=== PATIENT | female | born 1965 | race African-American/Black ===

== ENCOUNTER 2019-12-27 15:03 | Inpatient (IN) | payer MEDICAID, OTHER ==
[~2019-12-27] VITALS: Ht 154.9 cm; Wt 88.0 kg
[2019-12-27] VITALS (8 sets, daily range): BP systolic 123–200; BP diastolic 96–139
[2019-12-27] MEDS ORDERED: LORazepam 0.5mg tab ORAL ONE (15:30)
[2019-12-27 15:50] LABS: BASOPHILS % (AUTO) 3.5 % (0.0-2.0); HEMATOCRIT 57.9 % (37.0-47.0); HEMOGLOBIN 17.8 G/DL (12.0-16.0); MEAN CORPUSCULAR VOLUME 98 FL (80-99); MONOCYTES % (AUTO) 15.8 % (1.0-10.0); NEUTROPHILS % (AUTO) 57.7 % (45.0-75.0); PLATELET COUNT 370 K/UL (150-450); RED CELL DISTRIBUTION WIDTH 14.2 % (11.6-14.8); WHITE BLOOD COUNT 6.8 K/UL (4.8-10.8)
--- NOTE | 2019-12-27 15:50 | Emergency Room Report ---
History of Present Illness General Chief Complaint: Edema Source: Patient (Joycelyn Boyer) Present Illness HPI 54 YO Female presents to the ED c/O swelling of bilateral LE's which has progressed up the thighs and into the groin area over the course of " a few weeks". Pt. denies pmhx. SHe denies taking medications. SHe denies pain. She reports smoking hx. denies estrogen use. Pt. denies CP or SOB. Pt. reports having some fevers/chills off an on. She denies abdominal pain or tenderness. She denies hx of HTN. She reports twisting her ankle a few weeks ago but denies pain and denies any other trauma or fall. Pt. reports she is ambulatory. She rep orts some mild itching now. Denies swelling of the lips, tongue or throat. She denies new body washes or medications. (Joycelyn Boyer) Allergies: Coded Allergies: No Known Allergies (Unverified , 12/27/19) COVID-19 Screening Contact w/high risk pt: No Experienced COVID-19 symptoms?: No COVID-19 Testing performed CUSTOMS DIRECTOR: No (Joycelyn Boyer) Patient History Past Medical History: see triage record Social History: Reports: smoking Last Menstrual Period: n/a Reviewed Nursing Documentation: PMH: Agreed; PSxH: Agreed (Joycelyn Boyer) Nursing Documentation-PMH Past Medical History: No Stated History (Joycelyn Boyer) Review of Systems All Other Systems: negative except mentioned in HPI (Joycelyn Boyer) Physical Exam Vital Signs Date Time Temp Pulse Resp B/P (MAP) Pulse Ox O2 Delivery O2 Flow Rate FiO2 12/27/19 15:05 97.2 18 204/144 (164) 96 Room Air Sp02 EP Interpretation: reviewed, normal General Appearance: no apparent distress, alert, GCS 15, non-toxic Head: normocephalic, atraumatic Eyes: bilateral eye normal inspection, bilateral eye PERRL ENT: hearing grossly normal, normal voice Neck: full range of motion Respiratory: chest non-tender, lungs clear, normal breath sounds, no respiratory distress, no accessory muscle use, speaking full sentences, wheezing - scant expiratory wheeze Cardiovascular #1: regular rate, rhythm, edema - 2+ pitting edema of the bilateral LE's Gastrointestinal: normal bowel sounds, non tender, soft, non-distended, no guarding Genitourinary: normal inspection, other - ST swelling/induration across entire pubic area and upper thighs. NO obvious lesions. Musculoskeletal: back normal, normal range of motion, gait/station normal, non-tender Neurologic: alert, motor strength/tone normal, oriented x3, sensory intact, responsive, speech normal Psychiatric: judgement/insight normal Skin: other - entire LE's from foot up to the inguinal area and pubic area of bilateral LE's is swollen, skin is taught, and erythematous, No blisters, vesicles, sloughing noted. 2 + pitting edema in the calves down to the feet. Lymphatic: no adenopathy (Joycelyn Boyer) Medical Decision Making PA Attestation Dr. Flores is my supervising Physician whom patient management has been discussed with. (Joycelyn Boyer) Diagnostic Impression: Primary Impression: CHF (congestive heart failure) Qualified Codes: I50.9 - Heart failure, unspecified Additional Impressions: Pleural effusion Uncontrolled hypertension ER Course 54 YO Female presents to the ED c/O swelling of bilateral LE's which has progressed up the thighs and into the groin area over the course of " a few weeks". Pt. denies pmhx. SHe denies taking medications. SHe denies pain. She reports smoking hx. denies estrogen use. Pt. denies CP or SOB. Pt. reports having some fevers/chills off an on. She denies abdominal pain or tenderness. She denies hx of HTN. She reports twisting her ankle a few weeks ago but denies pain and denies any other trauma or fall. Pt. reports she is ambulatory. She reports some mild itching now. Denies swelling of the lips, tongue or throat. She denies new body washes or medications. Ddx considered but are not limited to PAD, venous stasis, DVT, cellulitis, CHF, peripheral edema, allergic reaction just to name a few. Vital signs: pt afebrile, however tachycardic. - review of previous visits to the ED pt. is consistently tachycardic. H&PE are most consistent with possible CHF vs cellulitis. - pt. does not have Cardiac RF other than smoking -Good circulation on PE. - Pt. has wells criteria of Zero. ORDERS: -CBC: WNL -CMP: Potassium of 3.2, Cr. 1.4 -Troponin: 0.036 -BNP: 6804 elevated -CK:133 - Lactic Acid: -Blood Cultures: Pending - EK bpm Sinus tach. -Venous Duplex US of bilateral lower extremities -CXR: ED INTERVENTIONS: -0.5mg Ativan PO ( pt. was very nervous/anxious on exam ) -0.1 mg Clonidine -40 Meq KCl PO - Lasix IV 40mg -ASA 325mg -Nitro -0.4 SL DISPOSITION: at this time pt. will be admitted to [ ] for new onset CHF. [ ] agreed to admit the pt. and to continue pt. care management. (Joycelyn Boyer) ER Course Differential diagnosis include was not limited to allergic reaction, congestive heart failure, anasarca, allergic reaction among others patient presented for increased body swelling. Patient's EKG interpreted by me showed sinus tachycardia with a rate of 134 diffuse T wave flattening with low voltage. Pat ient's troponin was noted to be unremarkable. BNP was markedly elevated. Patient was noted to have uncontrolled hypertension and tachycardia. Urine showed negative drug screen. Patient was given multiple medications for blood pressure control. As well as IV Lasix. Patient had a critical medical condition which untreated could potentially result in life or limb threatening injury. Total critical care time excluding procedures approximately 45 minutes. Labs Test 12/27/19 15:30 12/27/19 15:50 12/27/19 16:30 White Blood Count 6.8 K/UL (4.8-10.8) Red Blood Count 5.90 M/UL (4.20-5.40) Hemoglobin 17.8 G/DL (12.0-16.0) Hematocrit 57.9 % (37.0-47.0) Mean Corpuscular Volume 98 FL (80-99) Mean Corpuscular Hemoglobin 30.2 PG (27.0-31.0) Mean Corpuscular Hemoglobin Concent 30.8 G/DL (32.0-36.0) Red Cell Distribution Width 14.2 % (11.6-14.8) Platelet Count 370 K/UL (150-450) Mean Platelet Volume 8.5 FL (6.5-10.1) Neutrophils (%) (Auto) 57.7 % (45.0-75.0) Lymphocytes (%) (Auto) 21.0 % (20.0-45.0) Monocytes (%) (Auto) 15.8 % (1.0-10.0) Eosinophils (%) (Auto) 2.0 % (0.0-3.0) Basophils (%) (Auto) 3.5 % (0.0-2.0) Sodium Level 142 MMOL/L (136-145) Potassium Level 3.2 MMOL/L (3.5-5.1) Chloride Level 106 MMOL/L (98-107) Carbon Dioxide Level 27 MMOL/L (21-32) Anion Gap 9 mmol/L (5-15) Blood Urea Nitrogen 17 mg/dL (7-18) Creatinine 1.4 MG/DL (0.55-1.30) Estimat Glomerular Filtration Rate 47.6 mL/min (>60) Glucose Level 147 MG/DL (74-106) Calcium Level 8.3 MG/DL (8.5-10.1) Total Bilirubin 1.2 MG/DL (0.2-1.0) Direct Bilirubin 0.6 MG/DL (0.0-0.3) Aspartate Amino Transf (AST/SGOT) 30 U/L (15-37) Alanine Aminotransferase (ALT/SGPT) 44 U/L (12-78) Alkaline Phosphatase 190 U/L (46-116) Total Creatine Kinase 133 U/L (26-308) Troponin I 0.036 ng/mL (0.000-0.056) Pro-B-Type Natriuretic Peptide 6804 pg/mL (0-125) Total Protein 6.4 G/DL (6.4-8.2) Albumin 2.6 G/DL (3.4-5.0) Globulin 3.8 g/dL Albumin/Globulin Ratio 0.7 (1.0-2.7) Lactic Acid Level 2.00 mmol/L (0.4-2.0) Urine Color Yellow Urine Appearance Slightly cloudy Urine pH 5 (4.5-8.0) Urine Specific [place] 1.015 (1.005-1.035) Urine Protein 3+ (NEGATIVE) Urine Glucose (UA) Negative (NEGATIVE) Urine Ketones Negative (NEGATIVE) Urine Blood 2+ (NEGATIVE) Urine Nitrite Negative (NEGATIVE) Urine Bilirubin Negative (NEGATIVE) Urine Urobilinogen Normal MG/DL (0.0-1.0) Urine Leukocyte Esterase Negative (NEGATIVE) Urine RBC 5-10 /HPF (0 - 2) Urine WBC 0-2 /HPF (0 - 2) Urine Squamous Epithelial Cells Many /LPF (NONE/OCC) Urine Bacteria Few /HPF (NONE) Urine Opiates Screen Negative (NEGATIVE) Urine Barbiturates Screen Negative (NEGATIVE) Phencyclidine (PCP) Screen Negative (NEGATIVE) Urine Amphetamines Screen Negative (NEGATIVE) Urine Benzodiazepines Screen Negative (NEGATIVE) Urine Cocaine Screen Negative (NEGATIVE) Urine Marijuana (THC) Screen Negative (NEGATIVE) (Jose Guadalupe Flores MD) EKG Diagnostic Results Troponin ordered: Yes When was troponin ordered?: Dec 27, 2019 EKG Time: 15:39 Rate: tachycardiac Rhythm: NSR ST Segments: no acute changes ASA given to the pt in ED: Yes - 325mg PA Scribe Text This Interpretation was scribed by ANDREA Boyer. (Joycelyn Boyer) Rate: tachycardiac Rhythm: NSR ST Segments: no acute changes (Jose Guadalupe Flores MD) Chest X-Ray Diagnostic Results Chest X-Ray Diagnostic Results : Chest X-Ray Ordered: Yes # of Views/Limited/Complete: 1 View EP Interpretation: Yes PA Xray: Interpretation reviewed, by supervising MD, and agrees with findings. Interpretation: no consolidation, no pneumothorax, other - bilateral pleural effusions, cardiomegaly, and pulmonary edema. Impression: Other - abnormal Electronically Signed by: Joycelyn Boyer PA-C (Joycelyn Boyer) CT/MRI/US Diagnostic Results CT/MRI/US Diagnostic Results : Imaging Test Ordered: Venous Duplex US Bilateral LE's (Joycelyn Boyer) Last Vital Signs Date Time Temp Pulse Resp B/P (MAP) Pulse Ox O2 Delivery O2 Flow Rate FiO2 12/27/19 15:05 97.2 18 204/144 (164) 96 Room Air (Joycelyn Boyer) Status: improved (Jose Guadalupe Flores MD) Disposition: ADMITTED INPATIENT Condition: Serious Scripts No Active Prescriptions or Reported Meds Joyeclyn Boyer Dec 27, 2019 15:50 Jose Guadalupe Flores MD Dec 27, 2019 17:56
[2019-12-27 15:56] LABS: ANION GAP 9 mmol/L (5-15); BLOOD UREA NITROGEN 17 mg/dL (7-18); CALCIUM 8.3 MG/DL (8.5-10.1); CARBON DIOXIDE 27 MMOL/L (21-32); CHLORIDE 106 MMOL/L (98-107); CREATININE 1.4 MG/DL (0.55-1.30); POTASSIUM 3.2 MMOL/L (3.5-5.1); SODIUM 142 MMOL/L (136-145)
[2019-12-27 16:06] LABS: ALANINE AMINOTRANSFERASE 44 U/L (12-78); ALBUMIN 2.6 G/DL (3.4-5.0); ALBUMIN/GLOBULIN RATIO 0.7 (1.0-2.7); ALKALINE PHOSPHATASE 190 U/L (46-116); ASPARTATE AMINO TRANSFERASE 30 U/L (15-37); BILIRUBIN,TOTAL 1.2 MG/DL (0.2-1.0); CREATINE KINASE 133 U/L (26-308)
[2019-12-27 16:10] LABS: BILIRUBIN,DIRECT 0.6 MG/DL (0.0-0.3)
[2019-12-27] MEDS: Nitroglycerin Subl 0.4mg tab SL PRN ×2 (16:17→16:53)
--- NOTE | 2019-12-27 16:35 | Diagnostic Imaging Report ---
EXAM: XR Chest, 1 View CLINICAL HISTORY: CP TECHNIQUE: Frontal view of the chest. COMPARISON: No previous study. FINDINGS: Lungs: Prominence of central pulmonary vas mature. Presumed areas of pulmonary edema at the lung bases. Pleural space: Moderate to large left pleural effusion. No pneumothorax. Heart: Cardiomegaly. Mediastinum: Unremarkable. Bones/joints: Osteopenia. Other findings: There is mild hypoaeration. IMPRESSION: 1. Cardiomegaly. 2. Left pleural effusion. 3. Presumed areas of pulmonary edema. 4. Clinical correlation is advised to assess for congestive heart failure.
[2019-12-27 16:52] LABS: APPEARANCE,URINE SLIGHTLY CLOUDY; BILIRUBIN, URINE NEGATIVE (NEGATIVE); GLUCOSE, URINE (UA) NEGATIVE (NEGATIVE); KETONES,URINE NEGATIVE (NEGATIVE); LEUKOCYTE ESTERASE ,URINE NEGATIVE (NEGATIVE); NITRITE,URINE NEGATIVE (NEGATIVE); PH,URINE 5 (4.5-8.0); PROTEIN,URINE 3+ (NEGATIVE); UROBILINOGEN,URINE NORMAL MG/DL (0.0-1.0)
[2019-12-27 17:02] LABS: COLOR,URINE YELLOW
--- NOTE | 2019-12-27 19:13 | Diagnostic Imaging Report ---
EXAM: US Duplex Bilateral Lower Extremities Veins CLINICAL HISTORY: PAIN TECHNIQUE: Real-time duplex ultrasound scan of the bilateral lower extremity veins integrating B-mode two-dimensional vascular structure, Doppler spectral analysis, color flow Doppler imaging and compression. COMPARISON: No previous study. FINDINGS: Right deep veins: Imaging of the lower extremity deep venous systems bilaterally reveals no deep venous thrombosis, including the common femoral veins, superficial femoral veins, popliteal veins, and the posterior tibial and anterior tibial calf veins. The peroneal calf veins are not assessed bilaterally. Right superficial veins: Unremarkable. No thrombus in the visualized right great saphenous vein. Left deep veins: See above. Left superficial veins: Unremarkable. No thrombus in the visualized left great saphenous vein. Soft tissues: No acute findings. No popliteal cyst. IMPRESSION: 1. No deep venous thrombosis in either lower extremity deep venous system. 2. Limited evaluation of the calf veins.
[2019-12-28] VITALS: BP 147/107
[2019-12-28 04:00] VITALS: BP 166/123
[2019-12-28 08:00] VITALS: BP 176/132
[2019-12-28] MEDS ORDERED: Furosemide 40mg tab ORAL SCH (09:00)
[2019-12-28] MEDS: Lisinopril 20mg tab ORAL SCH (11:35)
--- NOTE | 2019-12-28 11:45 | History and Physical Report ---
DATE OF ADMISSION: 12/27/2019 HISTORY OF PRESENT ILLNESS: This is a 54-year-old female who came to the hospital with complaints of swelling of her lower extremities. She reports this has been going on for about two weeks. She reports she has been lying in bed. The patient denies any other past history, however, she reports that she was told years ago that she is hypertensive. The patient admits to daily tobacco usage, smoking 3 to 4 cigarettes per day. She denies any cocaine, heroin. She admits to occasional marijuana use. She admits to daily vodka use 3 to 4 cocktails on a daily basis. She denies any history of sleep apnea or snoring at night. The patient lives at home with family. The patient denies any chest pain or shortness of breath on my assessment. She denies any recent travel. There is no hemoptysis. There is no cough. There is no fever. There is no sputum production. ALLERGIES: None. HOME MEDICATIONS: At this time, none. PAST SURGICAL HISTORY: The patient has had oophorectomy for tubal many years ago. REVIEW OF SYSTEMS: Denies any headaches, hematemesis, melena, hematochezia, night sweats, or weight loss. SOCIAL HISTORY: She lives at home with her daughter. She is an active smoker. She admits to marijuana use. She admits to daily alcohol use. She denies substance abuse such as heroin or cocaine. FAMILY HISTORY: Noncontributory. PHYSICAL EXAMINATION: GENERAL: Reveals a 54-year-old female. VITAL SIGNS: Blood pressure is 180/130, heart rate is 118, respirations are 20, O2 saturation 98% on room air, she is afebrile. HEENT: Unremarkable. CHEST: Decreased breath sounds bilaterally with bilateral crackles. HEART: Sounds tachycardic, unable to appreciate any murmurs or heart sounds. ABDOMEN: Soft, nontender. There is no appreciable edema to the lower rib margin. PELVIC: Not performed. RECTAL: Not performed. EXTREMITIES: Peripheries show deep pitting edema 2+ bilaterally extending from the ankles to the inner thighs. NEUROLOGIC: Nonfocal. LABORATORY AND DIAGNOSTIC DATA: Laboratory testing shows negative urinalysis. Chemistry notable for creatinine 1.4, glucose 147, bilirubin 1.2, alkaline phosphatase 190. ProBNP 6804. Albumin 2.6, potassium 3.2. CBC is normal except for hemoglobin 17.8. Urine tox is negative. X-ray chest shows cardiomegaly, no effusions. Venous duplex negative. IMPRESSION: 1. Suspect heart failure, likely heart function preserved. Heart failure due to diastolic heart disease/hypertension. 2. Hypertension. 3. Hypoalbuminemia. 4. Hyperbilirubinemia. 5. Hypokalemia. 6. Chronic tobacco use. 7. Daily alcohol use. DISCUSSION: The main issue is cardiac, I suspect. I will await 2D echo. I will start diuresis. I will initiate antihypertensives. I will consult Cardiology. We will replace potassium. We will pre parole counseling aide regarding tobacco cessation and alcohol cessation. We will follow carefully as air sampling and monitoring and case resource manager. Provide oxygen as needed. Outpatient polysomnography. Florentin Sparrow M.D. DR: King JOB#: [id number] CC:
[2019-12-28 12:00] VITALS: BP 165/129
[2019-12-28 16:00] VITALS: BP 121/87
--- NOTE | 2019-12-28 18:45 | Consultation ---
DATE OF CONSULTATION: 12/28/2019 INTERVENTIONAL CARDIOLOGY CONSULTATION CONSULTING PHYSICIAN: Tye Wang MD CHIEF COMPLAINT: Shortness of breath, orthopnea. HISTORY OF PRESENT ILLNESS: This is a 54-year-old black female admitted through the ER with complaints of bilateral leg swelling times several days, worsening over time. Past medical history hypertension, alcohol abuse, tobacco smoking, and obesity. Patient was diagnosed with hypertension a few years ago. However, she chose not to take antihypertensive medications. She complains of leg swelling off and on over the last several months, worsening over the last few days causing her report to ER for further evaluation and management. No history of PR or PCI, no prior diagnosis of congestive heart failure. Echocardiogram, ejection fraction 20 to 25%. Chest x-ray, a large left pleural effusion. EKG, sinus rhythm. BNP greater than 6000. Systolic blood pressure 160 at admission. Heart rate 110. Troponin negative. Patient denies chest pain, fever, dizziness, cough, vision change, lower extremity weakness, or contact with COVID-19 positive people. At the time of exam, patient mainly complains of shortness of breath and leg swelling. Venous ultrasound negative for DVT. ALLERGIES: No known drug allergies. PAST MEDICAL HISTORY: As per HPI above. HOME MEDICATIONS: None. PAST SURGICAL HISTORY: Oophorectomy many years ago. SOCIAL HISTORY: Lives at home with daughter. Active tobacco smoker. Occasional marijuana user, denies cocaine or methamphetamine use. Admits to daily alcohol use x20 years. FAMILY HISTORY: Noncontributory. REVIEW OF SYSTEMS: As per HPI above. PHYSICAL EXAMINATION: VITAL SIGNS: Blood pressure 150/90, heart rate 105, respiratory rate 18, O2 saturation 98% on room air. Afebrile. GENERAL: No acute distress. Calm and cooperative. HEENT: EOMs intact. Anicteric. NECK: No JVD. No bruit. CHEST: Symmetrical expansion. Bronchial breath sounds. No wheeze. Shallow inspiration. CARDIOVASCULAR: Rate rhythmic and regular. S1, S2. Tachycardic. No significant murmur on auscultation. ABDOMEN: Soft, nontender, obese. EXTREMITIES: 2+ pitting edema bilaterally. Stocking pattern venous stasis skin atrophy and mild discoloration medial ankle bilaterally. No lesion. NEUROLOGIC: Grossly nonfocal. LABORATORY DATA: Reviewed. IMAGING: As per HPI above. ASSESSMENT AND PLAN: 1. Congestive heart failure, acute on chronic systolic on diastolic heart failure with reduced ejection fraction. EF 20 to 25%, decompensated with elevated BNP. 2. Hypertension. 3. Hypokalemia. 4. Current tobacco use. 5. ETOH use and abuse. 6. Obesity. RECOMMENDATION: Diuresis with IV Lasix 40 mg b.i.d. to help alleviate fluid overload, patient has good renal function. Potassium is replaced. Started on Coreg and lisinopril. Further recommendations to follow clinical progress. We will continue to follow carefully. The above assessment and plan was discussed with Dr. Wang who agreed to the above as outlined. Tye Wang MD Gia Tubbs PA-C DR: DON JOB#: [id number] CC:
[2019-12-28 20:00] VITALS: BP 126/99
[2019-12-28] MEDS: Carvedilol 6.25mg Tab ORAL SCH (20:33)
[2019-12-29] VITALS: BP 112/79
[2019-12-29 04:00] VITALS: BP 136/90
[2019-12-29 08:00] VITALS: BP 126/92
[2019-12-29] MEDS: Carvedilol 6.25mg Tab ORAL SCH ×2 (09:01→20:49)
[2019-12-29] MEDS: Lisinopril 20mg tab ORAL SCH (09:01)
--- NOTE | 2019-12-29 10:55 | Pulmonology Progress Note ---
Subjective Interval Events: Feeling better Constitutional: Reports: no symptoms HEENT: Repors: no symptoms Respiratory: Reports: no symptoms Cardiovascular: Reports: no symptoms Gastrointestinal/Abdominal: Reports: no symptoms Genitourinary: Reports: no symptoms Neurologic: Reports: no symptoms Allergies: Coded Allergies: No Known Allergies (Unverified , 12/27/19) Objective Last 24 Hour Vital Signs Date Time Temp Pulse Resp B/P (MAP) Pulse Ox O2 Delivery O2 Flow Rate FiO2 12/29/19 09:01 95 136/90 12/29/19 09:01 136/90 12/29/19 09:00 Room Air 12/29/19 08:00 97.9 92 18 126/92 (103) 97 12/29/19 08:00 97 12/29/19 04:00 95 12/29/19 04:00 97.5 95 18 136/90 (105) 98 12/29/19 00:00 96 12/29/19 00:00 96.8 97 20 112/79 (90) 95 12/28/19 21:00 Room Air 12/28/19 20:33 108 126/99 12/28/19 20:00 105 12/28/19 20:00 97.5 108 20 126/99 (108) 98 12/28/19 16:00 97.2 107 20 121/87 (98) 98 12/28/19 16:00 101 12/28/19 15:02 107 121/87 12/28/19 12:00 122 12/28/19 12:00 97.2 119 18 165/129 (141) 94 12/28/19 11:35 165/129 12/28/19 11:35 122 165/129 Intake and Output 12/28/19 12/29/19 19:00 07:00 Intake Total 400 ml 420 ml Balance 400 ml 420 ml Intake Oral 400 ml 420 ml # Voids 3 4 # Bowel Movements 1 2 General Appearance: no acute distress HEENT: normocephalic Respiratory: chest wall non-tender, lungs clear Cardiovascular: normal peripheral pulses, normal rate Abdomen: normal bowel sounds Extremities: no cyanosis Microbiology Date/Time Source Procedure Growth Status 12/27/19 16:33 Nasopharynx SARS-CoV-2 RdRp Gene Assay - Final Complete Current Medications Medications (Trade) Dose Ordered Sig/Wiley Route PRN Reason Start Time Stop Time Status Last Admin Dose Admin Carvedilol (Coreg) 6.25 mg EVERY 12 HOURS ORAL 12/28/19 21:00 01/27/20 20:59 12/29/19 09:01 Clonidine HCl (Catapres Tab) 0.1 mg Q4H PRN ORAL For High Blood Pressure 12/28/19 09:45 03/27/20 09:44 12/28/19 10:01 Furosemide (Lasix) 40 mg EVERY 12 HOURS IV 12/28/19 11:00 01/27/20 10:59 12/29/19 09:00 Lisinopril (PriniviL) 20 mg DAILY ORAL 12/28/19 11:00 01/27/20 10:59 12/29/19 09:01 Nitroglycerin (Ntg) 0.4 mg Q5M PRN SL Prn Chest Pain 12/27/19 16:15 01/26/20 16:14 12/27/19 16:53 Potassium Chloride (K-Dur) 40 meq DAILY ORAL 12/28/19 11:00 03/27/20 10:59 12/29/19 09:00 Assessment/Plan Assessment/Plan IMPRESSION: 1. Systolic heart failure/ CHF; acute 2. Hypertension. 3. Hypoalbuminemia. 4. Hyperbilirubinemia. 5. Hypokalemia. 6. Chronic tobacco use. 7. Daily alcohol use. DISCUSSION: Continue diuresis. Continue antihypertensives. I Seen by Cardiology. DC planning for home in 1-2 days Needs outpt cardiac cath/polysomnogram Counselled regarding tobacco cessation and alcohol cessation. Amado Juarez Omar Syed MD Dec 29, 2019 10:55
[2019-12-29 12:00] VITALS: BP 123/70
[2019-12-29 16:00] VITALS: BP 125/91
--- NOTE | 2019-12-29 19:24 | Cardiology Report ---
APPROVED REPORT EKG Measurement Heart [id number] <Conclusion> Sinus tachycardia Possible Left atrial enlargement Low voltage QRS Cannot rule out Anterior infarct, age undetermined Abnormal ECG
[2019-12-29 20:00] VITALS: BP 133/93
[2019-12-29] MEDS ORDERED: Zolpidem 5mg tab ORAL PRN (21:00)
[2019-12-30] VITALS: BP 113/87
[2019-12-30 04:00] VITALS: BP 132/93
[2019-12-30 07:34] LABS: BASOPHILS % (AUTO) 2.8 % (0.0-2.0); EOSINOPHILS % (AUTO) 3.7 % (0.0-3.0); HEMATOCRIT 52.7 % (37.0-47.0); HEMOGLOBIN 16.4 G/DL (12.0-16.0); LYMPHOCYTES % (AUTO) 30.1 % (20.0-45.0); MEAN CORPUSCULAR VOLUME 98 FL (80-99); MONOCYTES % (AUTO) 14.3 % (1.0-10.0); NEUTROPHILS % (AUTO) 49.1 % (45.0-75.0); PLATELET COUNT 299 K/UL (150-450); RED BLOOD COUNT 5.38 M/UL (4.20-5.40); RED CELL DISTRIBUTION WIDTH 14.3 % (11.6-14.8); WHITE BLOOD COUNT 5.4 K/UL (4.8-10.8)
[2019-12-30 07:38] LABS: CALCIUM 7.8 MG/DL (8.5-10.1); CREATININE 1.5 MG/DL (0.55-1.30); POTASSIUM 4.9 MMOL/L (3.5-5.1)
[2019-12-30 08:00] VITALS: BP 132/75
--- NOTE | 2019-12-30 08:11 | Cardiology Report ---
APPROVED REPORT EXAM: Two-dimensional and M-mode echocardiogram with Doppler and color Doppler. INDICATION Congestive Heart Failure M-Mode DIMENSIONS IVSd1.1 (0.7-1.1cm)Left Atrium (MM)5.4 (1.6-4.0cm) LVDd5.6 (3.5-5.6cm)Aortic Root2.5 (2.0-3.7cm) PWd1.1 (0.7-1.1cm)Aortic Cusp Exc.1.6 (1.5-2.0cm) IVSs1.2 cmEPSS1.3 (>1.0cm) LVDs5.0 (2.5-4.0cm) PWs1.4 cm <Conclusion> Normal left ventricular chamber size. Severe global left ventricular hypokinesis. Left ventricular ejection fraction estimated to be less than 20 %. No left ventricular hypertrophy. No pericardial effusion. Large posterior pleural effusion. Moderate bi-atrial enlargement. Right ventricular chamber size is within normal limits. Focal aortic valve sclerosis with adequate cusp excursion. Thickened mitral valve leaflets with normal excursion. Mitral annulus and aortic root calcification. Normal pulmonic valve structure. Normal tricuspid valve structure. IVC dilated at 2.3 cm and non-collapsing with respiration suggestive of increased RA pressure. A color flow and spectral Doppler study was performed and revealed: No aortic insufficiency. Severe mitral regurgitation. Left ventricular diastolic function undetermined due to arrhythmia. Severe tricuspid regurgitation. Tricuspid systolic velocities suggests peak right ventricular systolic pressure of 63 mmHg, C/W severe pulmonary hypertension. No pulmonic regurgitation present.
[2019-12-30 08:44] VITALS: BP 132/93
[2019-12-30] MEDS: Carvedilol 6.25mg Tab ORAL SCH (08:44)
[2019-12-30] MEDS: Lisinopril 20mg tab ORAL SCH (08:44)
--- NOTE | 2019-12-30 09:20 | Cardiology Progress Note ---
Assessment/Plan Status: progressing Assessment/Plan continue diuresis with IV Lasix, repeat BNP pending today not a good candidate for Lexiscan due to low EF and severely reduced LV function, recommend cardiac cath as outpatient once appropriately diuresed and optimized medically Subjective Cardiovascular: Reports: no symptoms - Feeling better, no new complaints, able to breathe more easily Respiratory: Reports: orthopnea, shortness of breath Gastrointestinal/Abdominal: Reports: no symptoms Genitourinary: Reports: no symptoms Subjective Feeling better, able to breathe more easily after diuresis, denies chest pain or worsening SOB Objective Last 24 Hour Vital Signs Date Time Temp Pulse Resp B/P (MAP) Pulse Ox O2 Delivery O2 Flow Rate FiO2 12/30/19 08:44 97 132/93 12/30/19 08:44 132/93 12/30/19 08:31 Room Air 12/30/19 04:00 97.5 98 18 132/93 (106) 97 12/30/19 04:00 97 12/30/19 00:00 97.5 100 20 113/87 (96) 95 12/30/19 00:00 100 12/29/19 21:00 Room Air 12/29/19 20:49 100 133/93 12/29/19 20:00 96.6 97 20 133/93 (106) 100 12/29/19 20:00 102 12/29/19 16:00 97.5 96 18 125/91 (102) 97 12/29/19 16:00 100 12/29/19 12:00 97.9 96 20 123/70 (87) 98 12/29/19 12:00 96 General Appearance: no apparent distress EENT: PERRL/EOMI, normal ENT inspection Neck: non-tender, supple, no JVD Rhythm: NSR Cardiovascular: normal peripheral pulses, normal rate, regular rhythm Respiratory/Chest: no respiratory distress, crackles/rales Abdomen: non tender Extremities: trace edema, moderate edema Pulses: normal: radial (L), femoral (L) 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 Intake and Output 12/29/19 12/30/19 19:00 07:00 Intake Total 480 ml 240 ml Output Total 950 ml Balance -470 ml 240 ml Intake Oral 480 ml 240 ml Output Urine Total 950 ml # Voids 3 # Bowel Movements 2 2 Laboratory Tests Test 12/30/19 06:03 White Blood Count 5.4 K/UL (4.8-10.8) Red Blood Count 5.38 M/UL (4.20-5.40) Hemoglobin 16.4 G/DL (12.0-16.0) H Hematocrit 52.7 % (37.0-47.0) H Mean Corpuscular Volume 98 FL (80-99) Mean Corpuscular Hemoglobin 30.4 PG (27.0-31.0) Mean Corpuscular Hemoglobin Concent 31.1 G/DL (32.0-36.0) L Red Cell Distribution Width 14.3 % (11.6-14.8) Platelet Count 299 K/UL (150-450) Mean Platelet Volume 8.4 FL (6.5-10.1) Neutrophils (%) (Auto) 49.1 % (45.0-75.0) Lymphocytes (%) (Auto) 30.1 % (20.0-45.0) Monocytes (%) (Auto) 14.3 % (1.0-10.0) H Eosinophils (%) (Auto) 3.7 % (0.0-3.0) H Basophils (%) (Auto) 2.8 % (0.0-2.0) H Sodium Level 139 MMOL/L (136-145) Potassium Level 4.9 MMOL/L (3.5-5.1) Chloride Level 102 MMOL/L (98-107) Carbon Dioxide Level 31 MMOL/L (21-32) Anion Gap 6 mmol/L (5-15) Blood Urea Nitrogen 19 mg/dL (7-18) H Creatinine 1.5 MG/DL (0.55-1.30) H Estimat Glomerular Filtration Rate 44.1 mL/min (>60) Glucose Level 101 MG/DL (74-106) Calcium Level 7.8 MG/DL (8.5-10.1) L Pro-B-Type Natriuretic Peptide Pending Microbiology Date/Time Source Procedure Growth Status 12/27/19 16:33 Nasopharynx SARS-CoV-2 RdRp Gene Assay - Final Complete Objective 1. HFrEF, acute systolic on diastolic heart failure with reduced EF 25%, decompensated 2. HTN 3. Pulmonary edema 4. Obesity Gia Tubbs PA-C Dec 30, 2019 09:20
--- NOTE | 2019-12-30 10:14 | Pulmonology Progress Note ---
Subjective Interval Events: Feeling better Constitutional: Reports: no symptoms HEENT: Repors: no symptoms Respiratory: Reports: no symptoms Cardiovascular: Reports: no symptoms Gastrointestinal/Abdominal: Reports: no symptoms Genitourinary: Reports: no symptoms Neurologic: Reports: no symptoms Allergies: Coded Allergies: No Known Allergies (Unverified , 12/27/19) Objective Last 24 Hour Vital Signs Date Time Temp Pulse Resp B/P (MAP) Pulse Ox O2 Delivery O2 Flow Rate FiO2 12/30/19 08:44 97 132/93 12/30/19 08:44 132/93 12/30/19 08:31 Room Air 12/30/19 04:00 97.5 98 18 132/93 (106) 97 12/30/19 04:00 97 12/30/19 00:00 97.5 100 20 113/87 (96) 95 12/30/19 00:00 100 12/29/19 21:00 Room Air 12/29/19 20:49 100 133/93 12/29/19 20:00 96.6 97 20 133/93 (106) 100 12/29/19 20:00 102 12/29/19 16:00 97.5 96 18 125/91 (102) 97 12/29/19 16:00 100 12/29/19 12:00 97.9 96 20 123/70 (87) 98 12/29/19 12:00 96 Intake and Output 12/29/19 12/30/19 19:00 07:00 Intake Total 480 ml 240 ml Output Total 950 ml Balance -470 ml 240 ml Intake Oral 480 ml 240 ml Output Urine Total 950 ml # Voids 3 # Bowel Movements 2 2 General Appearance: no acute distress HEENT: normocephalic Respiratory: chest wall non-tender, lungs clear Cardiovascular: normal peripheral pulses, normal rate Abdomen: normal bowel sounds Extremities: no cyanosis Microbiology Date/Time Source Procedure Growth Status 12/27/19 16:33 Nasopharynx SARS-CoV-2 RdRp Gene Assay - Final Complete Laboratory Tests 12/30/19 06:03: White Blood Count 5.4, Red Blood Count 5.38, Hemoglobin 16.4H, Hematocrit 52.7H, Mean Corpuscular Volume 98, Mean Corpuscular Hemoglobin 30.4, Mean Corpuscular Hemoglobin Concent 31.1L, Red Cell Distribution Width 14.3, Platelet Count 299, Mean Platelet Volume 8.4, Neutrophils (%) (Auto) 49.1, Lymphocytes (%) (Auto) 30.1, Monocytes (%) (Auto) 14.3H, Eosinophils (%) (Auto) 3.7H, Basophils (%) (Auto) 2.8H, Sodium Level 139, Potassium Level 4.9, Chloride Level 102, Carbon Dioxide Level 31, Anion Gap 6, Blood Urea Nitrogen 19H, Creatinine 1.5H, Estimat Glomerular Filtration Rate 44.1, Glucose Level 101, Calcium Level 7.8L, Pro-B-Type Natriuretic Peptide 2660H Current Medications Medications (Trade) Dose Ordered Sig/Wiley Route PRN Reason Start Time Stop Time Status Last Admin Dose Admin Carvedilol (Coreg) 6.25 mg EVERY 12 HOURS ORAL 12/28/19 21:00 01/27/20 20:59 12/30/19 08:44 Clonidine HCl (Catapres Tab) 0.1 mg Q4H PRN ORAL For High Blood Pressure 12/28/19 09:45 03/27/20 09:44 12/28/19 10:01 Furosemide (Lasix) 40 mg EVERY 12 HOURS IV 12/28/19 11:00 01/27/20 10:59 12/30/19 08:43 Lisinopril (PriniviL) 20 mg DAILY ORAL 12/28/19 11:00 01/27/20 10:59 12/30/19 08:44 Nitroglycerin (Ntg) 0.4 mg Q5M PRN SL Prn Chest Pain 12/27/19 16:15 01/26/20 16:14 12/27/19 16:53 Potassium Chloride (K-Dur) 40 meq DAILY ORAL 12/28/19 11:00 03/27/20 10:59 12/30/19 08:43 Zolpidem Tartrate (Ambien) 5 mg HSPRN PRN ORAL Insomnia 12/29/19 21:00 01/05/20 20:59 12/29/19 20:54 Assessment/Plan Assessment/Plan IMPRESSION: 1. Systolic heart failure/ CHF; acute 2. Hypertension. 3. Hypoalbuminemia. 4. Hyperbilirubinemia. 5. Hypokalemia. 6. Chronic tobacco use. 7. Daily alcohol use. DISCUSSION: Continue diuresis. Continue antihypertensives. Seen by Cardiology. DC home today Needs outpt cardiac cath/polysomnogram Counselled regarding tobacco cessation and alcohol cessation. Amado Juarez Omar Syed MD Dec 30, 2019 10:14
[2019-12-30] MEDS ORDERED: FUROSEMIDE40 MG ORAL (10:17)
[2019-12-30] MEDS ORDERED: PRINIVIL20 MG ORAL (10:17)
[2019-12-30] MEDS ORDERED: COREG6.25 MG ORAL (10:17)
[2019-12-30] MEDS ORDERED: K-TAB ER20 MEQ ORAL (10:17)
--- NOTE | 2019-12-31 16:39 | Discharge Summary ---
Discharge Summary Discharge Summary _ DATE OF ADMISSION: 12/27/2019 DATE OF DISCHARGE: 12/30/2019 DISCHARGED BY: Dr. Sparrow REASON FOR ADMISSION: 54 years old female with no stated past medical history, presented to emergency department complaining of bilateral lower extremity swelling , that progressed to her thighs and into the groin area over the few weeks. She reported smoking history. She denied chest pain or shortness of breath. She denied fever or chills. No abdominal pain. Patient twisted her ankle few weeks ago, but reported to be ambulatory, no other trauma or fall. Upon evaluation blood pressure was significantly elevated 204/144. Laboratory work-up revealed no leukocytosis , stable hemoglobin and hematocrit. Potassium 3.2. Creatinine 1.4. Troponin 0.036, pro BNP 6804. EKG revealed sinus tachycardia, no acute ischemic changes Lactic acid 2.0. Urine toxicology screen was negative. Rapid COVID-19 was negative Urinalysis revealed no pyuria. Chest x-ray revealed cardiomegaly , left pleural effusion; presumed pulmonary edema. Venous duplex bilateral lower extremity revealed no evidence of acute DVT. In the emergency department patient received Lasix, potassium was replaced. Patient received aspirin , nitroglycerin, clonidine and admitted for further management. 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 Wang [facility]: Patient admitted to telemetry floor. Echocardiogram demonstrated severe global left ventricular hypokinesis with left ventricular ejection fraction estimated to be less than 20%. No evidence of left ventricular hypertrophy. Severe mitral and tricuspid regurgitation. Right ventricular systolic pressure of 63 consistent with severe pulmonary hypertension. Diuresis provided with IV Lasix with goal to alleviate fluid overload with close monitoring of volumes and cardiorenal parameters. Guideline directed medical therapy with beta-brianda , SELVIN inhibitor initiated. Volumes and renal parameters were closely monitored., Blood pressure improved ; prior to discharge blood pressure 132/75 , pulse oximetry stable on room air. Blood cultures were negative. Supportive care provided. Patient was stable for discharge. Patient will need outpatient cardiac catheterization as well as polysomnogram. Patient was counseled regarding tobacco cessation and alcohol cessation. FINAL DIAGNOSES: Congestive heart failure, acute on chronic, systolic and diastolic with reduced ejection fraction 20 to 25% , decompensated Hypokalemia Hypertension with initial hypertensive urgency Current tobacco user EtOH use and abuse Obesity Hypoalbuminemia Hyperbilirubinemia DISCHARGE MEDICATIONS: See Medication Reconciliation list. DISCHARGE INSTRUCTIONS: Patient was discharged home. Follow-up with a primary care provider in 1 week. I have been assigned to dictate discharge summary for this account. I was not involved in the patient's management. Neela Bates NP Dec 31, 2019 16:39
== END 2019-12-30 12:36 | disposition home or self-care (01) | DRG 194 ==
LOC: EMR 15:34 → 2E 15:55 → EDBEDREQ 16:47
DX: I11.0 Hypertensive heart disease with heart failure (principal); I50.43 Acute on chronic combined systolic (congestive) and diastolic (congestive) heart failure; E88.09 Other disorders of plasma-protein metabolism, not elsewhere classified; E87.6 Hypokalemia; E66.9 Obesity, unspecified; Z68.36 Body mass index [BMI] 36.0-36.9, adult; F17.200 Nicotine dependence, unspecified, uncomplicated; I34.0 Nonrheumatic mitral (valve) insufficiency; I36.1 Nonrheumatic tricuspid (valve) insufficiency; I27.20 Pulmonary hypertension, unspecified; I16.0 Hypertensive urgency; F10.10 Alcohol abuse, uncomplicated; E80.6 Other disorders of bilirubin metabolism
CPT/HCPCS: 36415; 71045; 80048; 80053; 80307; 81003; 82248; 82550; 83605; 83880; 84484; 85025; 87040; 93005; 93306; 93970; 96374; 99291; J8499; U0002